=== PATIENT | female | born 1990 | race Caucasian/White ===

== ENCOUNTER 2016-09-05 00:14 | Emergency (ER) | payer OTHER | END 2016-09-05 03:44 | disposition home or self-care (01) | LOC: ER1 00:14 | DX: J11.1 Influenza due to unidentified influenza virus with other respiratory manifestations (principal); F17.210 Nicotine dependence, cigarettes, uncomplicated; Z88.0 Allergy status to penicillin | CPT/HCPCS: 71010; 87081; 87880; 96372; 99283; J1100 ==

== ENCOUNTER 2021-03-15 15:00 | Emergency (ER) | payer OTHER ==
[~2021-03-15] VITALS: Ht 180.3 cm; Wt 143.8 kg
== END 2021-03-15 19:00 | disposition home or self-care (01) ==
LOC: ER1 15:00
DX: U07.1 COVID-19 (principal); Z23 Encounter for immunization; Z88.0 Allergy status to penicillin
CPT/HCPCS: 99283; M0243

== ENCOUNTER → 2021-08-03 | Outpatient (CLI) | payer OTHER | LOC: CT 11:30 | DX: R51.9 Headache, unspecified (principal) | CPT/HCPCS: 36415; 70470; 82565; 84520; Q9967 ==